=== PATIENT | male | born 1970 | race Hispanic/Latino ===

== ENCOUNTER 2016-09-24 16:53 | Emergency (ER) | payer SELFPAY ==
[2016-09-24] MEDS ORDERED: cloNIDine HCl 0.1 MG TAB ONE (17:20)
[2016-09-24 17:40] LABS: #Basophils 0.1 thou/uL (0.0-0.2); #Eosinphils 0.3 thou/uL (0.0-0.7); #Lymphocytes 1.8 thou/uL (1.20-3.40); #Monocytes 0.4 thou/uL (0.11-0.59); #Neutrophils 4.5 thou/uL (1.40-6.50); %Basophils 1.3 % (0.0-1.0); %Eosinophils 3.6 % (0.0-10.0); %Lymphocytes 25.3 % (21.0-51.0); %Monocytes 6.2 % (0.0-10.0); %Neutrophils 63.7 % (42.0-75.0); Hemoglobin 14.7 g/dL (14.0-18.0); Mean Corpuscular HGB CONC 33.2 g/dL (32.0-36.0); Mean Corpuscular Hemoglobin 28.4 pg (27.0-31.0); Mean Corpuscular Volume 85.6 fl (80.0-94.0); Mean Platelet Volume 10.6 fL (7.4-10.4); Platelet Count 151 thou/uL (130-400); RBC Distribution Width 12.1 % (11.5-14.5); Red Blood Cell (RBC) Count 5.16 mill/uL (4.70-6.10); White Blood Cell (WBC) Count 7.1 thou/uL (4.8-10.8)
[2016-09-24 17:45] LABS: INR-International Normal Ratio 1.1; PTT 30.9 SEC (22.9-36.1); Prothrombin Time 14.2 SEC (12.0-14.7)
[2016-09-24 17:54] LABS: ALT (SGPT) 51 U/L (0-55); AST (SGOT) 36 U/L (5-34); Albumin 4.2 g/dL (3.5-5.0); Alkaline Phosphatase 86 U/L (40-150); Anion Gap 14 mmol/L (10-20); BUN (Urea Nitrogen) 12 mg/dL (8.9-20.6); Bilirubin, Total 0.4 mg/dL (0.2-1.2); Calc. Creatinine Clearance 0 mL/min (70-130); Calcium 9.1 mg/dL (7.8-10.44); Carbon Dioxide 23 mmol/L (22-29); Chloride 108 mmol/L (98-107); Estimated GFR-MDRD Greater than 90; Globulin 3.7 g/dL (2.4-3.5); Glucose 90 mg/dL (70-105); Potassium 3.9 mmol/L (3.5-5.1); Protein, Total 7.9 g/dL (6.0-8.3); Sodium 141 mmol/L (136-145)
== END 2016-09-24 18:20 | disposition home or self-care (01) ==
LOC: NAV ERS 16:53
DX: R04.0 Epistaxis (principal); I10 Essential (primary) hypertension
CPT/HCPCS: 80053; 85025; 85610; 85730; 99283

== ENCOUNTER 2016-09-24 20:04 | Emergency (ER) | payer SELFPAY ==
[2016-09-24] MEDS ORDERED: Bacitracin Zinc 1 Packet ONE (20:28)
== END 2016-09-24 23:02 | disposition home or self-care (01) ==
LOC: NAV ERS 20:04
DX: R04.0 Epistaxis (principal)
CPT/HCPCS: 30903